=== PATIENT | male | born 1950 | race Native Hawaiian/Other Pacific Islander ===

== ENCOUNTER 2021-04-20 14:03 | Emergency (ER) | payer OTHER ==
[~2021-04-20] VITALS: Ht 175.3 cm; Wt 75.3 kg
[2021-04-20 14:12] VITALS: TEMP 98.3
[2021-04-20 15:19] LABS: PLATELET COUNT 114 K/uL (142-355)
[2021-04-20 16:50] VITALS: BP 135/79
== END 2021-04-20 16:50 | disposition home or self-care (01) ==
LOC: ED 14:03
PROVIDERS: Emergency Medicine Emergency Medical Services
DX: I82.412 Acute embolism and thrombosis of left femoral vein (principal); I82.432 Acute embolism and thrombosis of left popliteal vein
CPT/HCPCS: 85027; 85610; 87040; 99283

== ENCOUNTER 2021-08-14 13:47 | Outpatient (CLI) | payer OTHER | END 2021-08-14 19:17 | disposition home or self-care (01) | LOC: US 13:47 | PROVIDERS: ATTEND Family Medicine | DX: I70.92 Chronic total occlusion of artery of the extremities (principal) ==